=== PATIENT | female | born 1980 | race Caucasian/White ===

== ENCOUNTER 2018-09-24 08:00 | Outpatient (CLI) | payer MEDICAID ==
[2018-09-24 18:26] LABS: BASOPHILS # (AUTO) 0.1 10^3/uL (0.0-0.1); BASOPHILS % (AUTO) 0.8 %; EOSINOPHILS # (AUTO) 0.2 10^3/uL (0.0-0.7); EOSINOPHILS % (AUTO) 2.3 %; HGB - HEMOGLOBIN 14.3 g/dL (12.0-16.0); LYMPHOCYTES # (AUTO) 2.6 10^3/uL (1.5-3.5); LYMPHOCYTES % (AUTO) 35.2 %; MEAN CORPUSCULAR HEMOGLOBIN 28.9 pg (27.0-31.0); MEAN CORPUSCULAR HGB CONC 32.7 g/dL (32.0-36.0); MEAN CORPUSCULAR VOLUME 88.3 fL (81.0-99.0); MEAN PLATELET VOLUME 11.4 fL (7.9-10.8); MONOCYTES # (AUTO) 0.4 10^3/uL (0.0-1.0); MONOCYTES % (AUTO) 5.5 %; NEUTROPHILS # (AUTO) 4.1 10^3/uL (1.5-6.6); NEUTROPHILS % (AUTO) 56.1 %; PLT - PLATELET COUNT 251 10^3/uL (130-450); RED BLOOD COUNT 4.95 10^6/uL (4.20-5.40); RED CELL DISTRIBUTION WIDTH 13.7 % (12.0-15.0); WHITE BLOOD COUNT 7.4 x10^3/uL (4.8-10.8)
[2018-09-24 18:42] LABS: ALBUMIN 3.9 g/dL (3.2-5.5); ALBUMIN/GLOBULIN RATIO 1.1 (1.0-2.2); ALKALINE PHOSPHATASE 53 IU/L (42-121); ALT ALANINE AMINOTRANSFERASE 39 IU/L (10-60); AST ASPARTATE AMINOTRANSFERASE 29 IU/L (10-42); BILIRUBIN,TOTAL 0.5 mg/dL (0.2-1.0); BUN - BLOOD UREA NITROGEN 12 mg/dL (6-20); CARBON DIOXIDE - CO2 26 mmol/L (21-32); CHLORIDE 101 mmol/L (101-111); CHOLESTEROL 242 mg/dL; CREATININE 0.6 mg/dL (0.4-1.0); GFR - MDRD 112 (>89); GLUCOSE 101 mg/dL (70-100); HDL CHOLESTEROL 48 mg/dL; LDL CHOLESTEROL,CALCULATED 141 mg/dL; LDL/HDL RATIO 2.9 (<4.4); SODIUM 140 mmol/L (135-145); TOTAL PROTEIN 7.4 g/dL (6.7-8.2); VLDL CHOLESTEROL 53 mg/dL
== END 2018-09-24 23:59 | disposition home or self-care (01) ==
LOC: LAB.N 08:00
PROVIDERS: ATTEND Nurse Practitioner Gerontology
DX: E66.9 Obesity, unspecified (principal); F32.9 Major depressive disorder, single episode, unspecified
CPT/HCPCS: 36415; 80053; 80061; 83721; 84443; 85025

== ENCOUNTER 2019-01-31 07:59 | Emergency (ER) | payer MEDICAID ==
--- NOTE | 2019-01-31 08:12 | ED Physician Documentation ---
PD HPI LOWER EXT INJURY - Stated complaint Stated Complaint: RT FOOT INJURY - History obtained from History obtained from: Patient - History of Present Illness PD HPI LOW EXT INJURY LOCATION: Right, Foot Type of injury: Twist (fell with twist of foot, has pain lateral proximal foot.) Timing - onset: Today Timing - details: Abrupt onset, Still present Worsened by: Moving, Palpating Associated symptoms: Swelling. No: Weakness, Numbness Similar symptoms before: Diagnosis (had foot fracture near great toe in the past) Review of Systems Skin: denies: Abrasion (s), Laceration (s) Musculoskeletal: denies: Back pain Neurologic: denies: Focal weakness, Numbness PD PAST MEDICAL HISTORY - Past Medical History Cardiovascular: None Endocrine/Autoimmune: Type 2 diabetes - Present Medications Home Medications: Ambulatory Orders Medication Instructions Recorded Confirmed Hydrocodone/Acetaminophen 1 each PO Q6H PRN #12 tablet 01/31/19 [Hydrocodon-Acetaminophen 5-325] Ibuprofen [Motrin] 600 mg PO TID PRN #25 tab 01/31/19 - Allergies Allergies/Adverse Reactions: Allergies Allergy/AdvReac Type Severity Reaction Status Date / Time morphine Allergy Unknown Verified 01/31/19 08:13 PD ED PE NORMAL - Vitals Vital signs reviewed: Yes - General General: Alert and oriented X 3, No acute distress, Well developed/nourished - Extremities Extremities: Other (tender proximal 5th MT area with local swelling. The ankle itself is not tender. Pain with ROM. ) - Neuro Neuro: Alert and oriented X 3, No motor deficit, No sensory deficit Results - Vitals Vitals: Oxygen O2 Source Room air - Rads (name of study) right foot Radiology: Prelim report reviewed (nondisplaced proximal 5th MT shaft fx. ), See rad report Departure - Departure Disposition: 01 Home, Self Care Clinical Impression: Fracture of fifth metatarsal bone Qualifiers: Encounter type: initial encounter Fracture type: closed Fracture alignment: nondisplaced Laterality: right Qualified Code(s): S92.354A - Nondisplaced fracture of fifth metatarsal bone, right foot, initial encounter for closed fracture Condition: Stable Record reviewed to determine appropriate education?: Yes Instructions: ED Fx Foot Follow-Up: Jana Saha ARNP [Primary Care Provider] - Jason Maya MD [Provider Admit Priv/Credential] - Prescriptions: Hydrocodone/Acetaminophen [Hydrocodon-Acetaminophen 5-325] 1 each PO Q6H PRN #12 tablet PRN Reason: pain Ibuprofen [Motrin] 600 mg PO TID PRN #25 tab PRN Reason: Pain Comments: It looks like a nondisplaced fracture at the base of the fifth meta tarsal. Use the walking cast boot when up and around for 3 to 4 weeks for time for it to heal. Crutches initially if needed (he said to have those at home). Progressive weightbearing as tolerated and this can heal with weightbearing and provided it supported with the boot or shoe postop shoe. Ibuprofen 3 times a day initially with food and add Tylenol or hydrocodone if needed for worse pain. This should be just the first several days until its feeling better. Follow-up with orthopedics in about 1 to 1-1/2 weeks to ensure its healing well and staying in place. Ice elevate and rest the foot often today. Discharge Date/Time: 01/31/19 09:45
[2019-01-31 08:15] VITALS: BP 140/84
[2019-01-31] MEDS ORDERED: ACETAMINOPHEN 325 MG TABLET PO STA (08:16)
--- NOTE | 2019-01-31 08:51 | XRAY Report ---
Reason: twist/inversion injury; pain proximal/mid foot Procedure Date: 01/31/2019 Accession Number: [id number] / [id number] Procedure: XR - Foot 3 View RT CPT Code: Final Report FULL RESULT: EXAM: RIGHT FOOT RADIOGRAPHY EXAM DATE: 01/31/2019 08:38 AM. CLINICAL HISTORY: Twist/inversion injury; pain proximal/mid foot. COMPARISON: None. TECHNIQUE: 3 views. FINDINGS: Bones: Lateral orientation of the third and fourth metatarsal head suggesting healed previous fractures.. On one view, there is a minimal cortical step-off at the lateral aspect of the fifth metatarsal head, possibly nonacute. Elsewhere, no acute fractures or bone lesions detected. Joints: . No subluxations. Soft Tissues: No radiopaque foreign bodies.. IMPRESSION: Minimal cortical step-off at the fifth metatarsal head on one view, possibly not acute. Elsewhere, no acute fractures detected on current imaging. [facility]
[2019-01-31] MEDS ORDERED: HYDROcod/ACETAM 5/325 MG TABLET PO STA (09:18)
== END 2019-01-31 09:45 | disposition home or self-care (01) ==
LOC: ED 07:59
DX: S92.354A Nondisplaced fracture of fifth metatarsal bone, right foot, initial encounter for closed fracture (principal); W10.9XXA Fall (on) (from) unspecified stairs and steps, initial encounter; E11.9 Type 2 diabetes mellitus without complications
CPT/HCPCS: 73630; 99283; A9270

== ENCOUNTER 2019-02-21 19:03 | Emergency (ER) | payer MEDICAID ==
[2019-02-21 19:14] VITALS: BP 144/80
[2019-02-21 19:28] LABS: BILIRUBIN,URINE NEGATIVE (NEGATIVE); GLUCOSE, URINE (UA) NEGATIVE (NEGATIVE); KETONES,URINE (UA) NEGATIVE (NEGATIVE); LEUKOCYTE ESTERASE, URINE NEGATIVE (NEGATIVE); NITRITE,URINE NEGATIVE (NEGATIVE); OCCULT BLOOD,URINE TRACE-LYSE (NEGATIVE); PROTEIN,URINE NEGATIVE (NEGATIVE); UROBILINOGEN,URINE 0.2 (NORMAL) E.U./dL (NORMAL)
[2019-02-21 19:33] LABS: CLARITY,URINE CLEAR (CLEAR)
[2019-02-21] MEDS ORDERED: SULFAMETH/TRIMETH DS 800/160 MG TABLET PO STA (20:12)
--- NOTE | 2019-02-21 20:15 | ED Physician Documentation ---
PD HPI FEMALE - Stated complaint Stated Complaint: FEMALE /BUMP ON ABD - Chief complaint Chief Complaint: UTI - History obtained from History obtained from: Patient, Family - History of Present Illness Timing - onset: How many days ago (5) Timing - duration: Days (5) Timing - details: Gradual onset, Still present Associated symptoms: Dysuria, Urinary frequency, Other (sore on lower abdomen getting bigger) Contributing factors: No: Similar symptoms before: Diagnosis (UTI) Recently seen: Emergency Dept - Additional information Additional information: 38-year-old female previously well has developed urinary urgency and frequency with dysuria over the past 5 days. She has not had any fever nausea or flank pain. She has had urinary tract infection previously she feels like this is the same. She denies any history of diabetes. Prior to the onset of the symptoms she has been getting up in the night maybe once to go to the bathroom. She has a sore to the lower abdomen with a small area of redness that is increasing in size and tenderness. She has not had this previously. Review of Systems Constitutional: denies: Fever, Chills, Myalgias Eyes: denies: Decreased vision Ears: denies: Ear pain Nose: denies: Congestion Throat: denies: Sore throat Cardiac: denies: Chest pain / pressure Respiratory: denies: Dyspnea, Cough GI: denies: Abdominal Pain, Nausea, Vomiting : reports: Dysuria, Frequency Skin: reports: Lesions Musculoskeletal: denies: Neck pain, Back pain, Extremity pain Neurologic: denies: Generalized weakness, Focal weakness, Numbness PD PAST MEDICAL HISTORY - Past Medical History Cardiovascular: None - Present Medications Home Medications: Ambulatory Orders Medication Instructions Recorded Confirmed Hydrocodone/Acetaminophen 1 each PO Q6H PRN #12 tablet 01/31/19 [Hydrocodon-Acetaminophen 5-325] Ibuprofen [Motrin] 600 mg PO TID PRN #25 tab 01/31/19 Sulfamethoxazole/Trimethoprim 1 each PO BID #14 tablet 02/21/19 [Sulfamethoxazole-Tmp Ds Tablet] - Allergies Allergies/Adverse Reactions: Allergies Allergy/AdvReac Type Severity Reaction Status Date / Time morphine Allergy Edema Verified 02/21/19 19:09 PD ED PE NORMAL - Vitals Vital signs reviewed: Yes (Hypertensive mild) - General General: Alert and oriented X 3, No acute distress, Well developed/nourished - HEENT HEENT: Atraumatic, PERRL, EOMI - Respiratory Respiratory: No respiratory distress - Abdomen Abdomen: Other (On the lower abdominal wall there is a 1 cm round area of erythema that is raised without fluctuance and there is surrounding erythema extending approximately 5 cm in diameter. The area is mildly tender there is no drainage.) - Derm Derm: Normal color, Warm and dry, No rash Results - Vitals Vitals: Vital Signs - 24 hr 02/21/19 19:10 Temperature 36.6 C Heart Rate 74 Respiratory 18 Rate Blood Pressure 144/80 H O2 Saturation 99 Oxygen O2 Source Room air - Labs Labs: Laboratory Tests 02/21/19 19:20 Urine Color YELLOW Urine Clarity CLEAR Urine pH 6.0 Ur Specific [place] 1.020 Urine Protein NEGATIVE Urine Glucose (UA) NEGATIVE Urine Ketones NEGATIVE Urine Occult Blood TRACE-LYSE Urine Nitrite NEGATIVE Urine Bilirubin NEGATIVE Urine Urobilinogen 0.2 (NORMAL) Ur Leukocyte Esterase NEGATIVE Ur Microscopic Review NOT INDICATED Urine Culture Comments NOT INDICATED PD MEDICAL DECISION MAKING - ED course Complexity details: reviewed old records, considered differential, d/w patient, d/w family ED course: 38-year-old female with urinary tract symptoms has a clear urine without evidence of infection. She does have developing abscess on the lower abdominal wall with some surrounding cellulitis. She is administered a dose of sulfamethoxazole trimethoprim and instructed to use a warm compress. Departure - Departure Disposition: 01 Home, Self Care Clinical Impression: Dysuria, Abscess Condition: Stable Instructions: ED Staph Infec Abx Tx Only, ED Dysuria Uncertain Cause Follow-Up: Jana Saha ARNP [Primary Care Provider] - Prescriptions: Sulfamethoxazole/Trimethoprim [Sulfamethoxazole-Tmp Ds Tablet] 1 each PO BID #14 tablet
[2019-02-21 20:26] LABS: HCG UR QUAL NEGATIVE
== END 2019-02-21 20:35 | disposition home or self-care (01) ==
LOC: ED 19:03
DX: L02.211 Cutaneous abscess of abdominal wall (principal); L03.311 Cellulitis of abdominal wall; R30.0 Dysuria
CPT/HCPCS: 81003; 81025; 99283; 99284; A9270; 81001; 87086

== ENCOUNTER 2020-01-01 17:03 | Emergency (ER) | payer MEDICAID ==
[2020-01-01 17:11] VITALS: BP 157/106
[2020-01-01] MEDS ORDERED: HYDROcod/ACETAM 5/325 MG TABLET PO STA (17:22)
--- NOTE | 2020-01-01 17:25 | ED Physician Documentation ---
History of Present Illness - Stated complaint Stated Complaint: LT LEG PX - Chief complaint Chief Complaint: Trauma Ext - History obtained from History obtained from: Patient - History of Present Illness Timing: Yesterday Pain level max: 8 Pain level now: 6 - Additonal information Additional information: 39-year-old female presents to the emergency department complaining of left calf pain. She states that she was moving hay yesterday when she felt a tearing pain in the left calf. Feels similar to a calf strain/tear that she had in the past. Worse with walking, better with rest. Taking Tylenol and Motrin without relief. Review of Systems Constitutional: denies: Fever, Chills Ears: denies: Ear pain Nose: denies: Rhinorrhea / runny nose, Congestion Throat: denies: Sore throat Cardiac: denies: Chest pain / pressure GI: denies: Vomiting, Diarrhea Skin: denies: Rash Musculoskeletal: denies: Neck pain, Back pain Neurologic: denies: Headache PD PAST MEDICAL HISTORY - Past Medical History Past Medical History: Yes Cardiovascular: None Endocrine/Autoimmune: Type 2 diabetes - Present Medications Home Medications: Ambulatory Orders Medication Instructions Recorded Confirmed HYDROcod/ACETAM 5/325 [[place] 5/325] 1 - 2 ea PO Q6H PRN #14 tablet 01/01/20 Ibuprofen [Motrin] 800 mg PO Q8H PRN #30 tablet 01/01/20 Sertraline [Zoloft] 150 mg PO DAILY 01/01/20 01/01/20 - Allergies Allergies/Adverse Reactions: Allergies Allergy/AdvReac Type Severity Reaction Status Date / Time morphine Allergy Edema Verified 01/01/20 17:06 - Social History Does the pt smoke?: No Smoking Status: Never smoker Does the pt drink ETOH?: No Does the pt have substance abuse?: No - Immunizations Immunizations are current?: Yes - POLST Patient has POLST: No PD ED PE NORMAL - Vitals Vital signs reviewed: Yes - General General: Alert and oriented X 3, No acute distress - HEENT HEENT: Moist mucous membranes - Neck Neck: Supple, no meningeal sign - Derm Derm: Warm and dry - Extremities Extremities: Other (Tenderness palpation of the posterior aspect of the left calf. No swelling. No bruising. Achilles is intact. Neurovascular intact.) - Neuro Neuro: Alert and oriented X 3 Results - Vitals Vitals: Vital Signs - 24 hr 01/01/20 01/01/20 17:06 17:11 Temperature 36.3 C L 36.5 C Heart Rate 83 83 Respiratory 18 18 Rate Blood Pressure 157/106 H 157/106 H O2 Saturation 98 98 Oxygen O2 Source Room air PD MEDICAL DECISION MAKING - ED course Complexity details: considered differential, d/w patient ED course: 39-year-old female with what appears to be a left calf strain. No evidence of Achilles tendon rupture. Plantar flexion of the foot occurs with squeezing the calf. No evidence of DVT. No evidence of cellulitis or infection. We will provide crutches, pain medication and an Quinn wrap for compression. Patient counseled regarding signs and symptoms for which I believe and urgent re- evaluation would be necessary. Patient with good understanding of and agreement to plan and is comfortable going home at this time This document was made in part using voice recognition software. While efforts are made to proofread this document, sound alike and grammatical errors may occur. Departure - Departure Disposition: 01 Home, Self Care Clinical Impression: Strain of left calf muscle Condition: Good Instructions: ED Strain Muscle Ext Follow-Up: KENNETH GONZALES, MSN, GRAIN MANAGER [Primary Care Provider] - Within 1 week Prescriptions: Ibuprofen [Motrin] 800 mg PO Q8H PRN #30 tablet PRN Reason: PAIN &/OR FEVER HYDROcod/ACETAM 5/325 [[place] 5/325] 1 - 2 ea PO Q6H PRN #14 tablet PRN Reason: Pain Comments: Return if you worsen. Follow up with your doctor in 1 week for further care. You may bear weight as tolerated. Do not drink alcohol or drive while on narcotic pain medicine. Note that many narcotic pain relievers also contain tylenol/acetaminophen. Please ensure that your total dose of acetaminophen from all sources does not exceed 3 grams (3000mg) per day. You may constipated on this medication, take a stool softener such as "Colace" twice a day while you are on it. Also recommend a [id number] laxative such as senna or MiraLAX any day that you do not have a bowel movement. If you received narcotic pain medication in the emergency department, do not drive or operate machinery for the next 24 hours.
== END 2020-01-01 17:41 | disposition home or self-care (01) ==
LOC: ED 17:03
DX: S86.912A Strain of unspecified muscle(s) and tendon(s) at lower leg level, left leg, initial encounter (principal); X50.9XXA Other and unspecified overexertion or strenuous movements or postures, initial encounter; Y93.89 Activity, other specified; Y92.007 Garden or yard of unspecified non-institutional (private) residence as the place of occurrence of the external cause; E11.9 Type 2 diabetes mellitus without complications
CPT/HCPCS: 99282; 99284; A9270

== ENCOUNTER 2020-03-16 08:48 | Outpatient (CLI) | payer MEDICAID ==
[2020-03-16 11:56] LABS: BASOPHILS # (AUTO) 0.1 10^3/uL (0.0-0.1); BASOPHILS % (AUTO) 0.7 %; EOSINOPHILS # (AUTO) 0.2 10^3/uL (0.0-0.7); EOSINOPHILS % (AUTO) 2.5 %; HGB - HEMOGLOBIN 14.3 g/dL (12.0-16.0); LYMPHOCYTES # (AUTO) 2.5 10^3/uL (1.5-3.5); LYMPHOCYTES % (AUTO) 33.3 %; MEAN CORPUSCULAR HEMOGLOBIN 28.7 pg (27.0-31.0); MEAN CORPUSCULAR HGB CONC 32.4 g/dL (32.0-36.0); MEAN CORPUSCULAR VOLUME 88.4 fL (81.0-99.0); MEAN PLATELET VOLUME 10.6 fL (7.9-10.8); MONOCYTES # (AUTO) 0.6 10^3/uL (0.0-1.0); MONOCYTES % (AUTO) 7.2 %; NEUTROPHILS # (AUTO) 4.3 10^3/uL (1.5-6.6); NEUTROPHILS % (AUTO) 55.9 %; PLT - PLATELET COUNT 269 10^3/uL (130-450); RED BLOOD COUNT 4.99 10^6/uL (4.20-5.40); RED CELL DISTRIBUTION WIDTH 13.7 % (12.0-15.0); WHITE BLOOD COUNT 7.6 x10^3/uL (4.8-10.8)
[2020-03-16 12:33] LABS: ALBUMIN/GLOBULIN RATIO 1.1 (1.0-2.2); ALKALINE PHOSPHATASE 55 IU/L (42-121); ALT ALANINE AMINOTRANSFERASE 24 IU/L (10-60); AST ASPARTATE AMINOTRANSFERASE 20 IU/L (10-42); BILIRUBIN,TOTAL 0.3 mg/dL (0.2-1.0); BUN - BLOOD UREA NITROGEN 14 mg/dL (6-20); CALCIUM 9.2 mg/dL (8.5-10.3); CARBON DIOXIDE - CO2 26 mmol/L (21-32); CHLORIDE 104 mmol/L (101-111); CHOL/HDL RATIO 4.7 (<4.4); CHOLESTEROL 243 mg/dL; CREATININE 0.7 mg/dL (0.4-1.0); GLUCOSE 114 mg/dL (70-100); HDL CHOLESTEROL 52 mg/dL; LDL CHOLESTEROL,CALCULATED 151 mg/dL; LDL/HDL RATIO 2.9 (<4.4); TOTAL PROTEIN 7.6 g/dL (6.7-8.2); VLDL CHOLESTEROL 40 mg/dL
[2020-03-16 13:49] LABS: HEMOGLOBIN A1c% 5.7 % (4.27-6.07)
== END 2020-03-16 08:49 | disposition home or self-care (01) ==
LOC: LAB.N 08:48
PROVIDERS: ATTEND Nurse Practitioner Family
DX: E78.5 Hyperlipidemia, unspecified (principal); E66.9 Obesity, unspecified
CPT/HCPCS: 36415; 80050; 80061; 83036; 83721

== ENCOUNTER 2020-12-18 09:20 | Outpatient (CLI) | payer MEDICAID ==
[2020-12-18 12:42] LABS: ALBUMIN 4.7 g/dL (3.2-5.5); ALBUMIN/GLOBULIN RATIO 1.5 (1.0-2.2); ALKALINE PHOSPHATASE 55 IU/L (42-121); ALT ALANINE AMINOTRANSFERASE 29 IU/L (10-60); AST ASPARTATE AMINOTRANSFERASE 24 IU/L (10-42); BILIRUBIN,TOTAL 0.7 mg/dL (0.2-1.0); BUN - BLOOD UREA NITROGEN 13 mg/dL (6-20); CALCIUM 9.4 mg/dL (8.5-10.3); CARBON DIOXIDE - CO2 23 mmol/L (21-32); CHLORIDE 101 mmol/L (101-111); CREATININE 0.7 mg/dL (0.4-1.0); CRP - C-REACTIVE PROTEIN < 1.0 mg/dL (0-1.0); GFR - MDRD 93 (>89); GLUCOSE 101 mg/dL (70-100); POTASSIUM 3.8 mmol/L (3.5-5.0); SODIUM 138 mmol/L (135-145); TOTAL PROTEIN 7.9 g/dL (6.7-8.2); URIC ACID 6.9 mg/dL (2.6-7.2)
[2020-12-18 13:39] LABS: RHEUMATOID FACTOR NEGATIVE (Negative)
[2020-12-21 18:21] LABS: ANA SCREEN NEGATIVE (NEGATIVE)
== END 2020-12-18 09:21 | disposition home or self-care (01) ==
LOC: LAB.N 09:20
PROVIDERS: ATTEND Nurse Practitioner
DX: M77.11 Lateral epicondylitis, right elbow (principal)
CPT/HCPCS: 36415; 80053; 81599; 84550; 85651; 86038; 86140; 86200; 86225; 86430; 87040

== ENCOUNTER 2020-12-25 09:15 | Outpatient (CLI) | payer MEDICAID ==
--- NOTE | 2020-12-25 16:42 | XRAY Report ---
PROCEDURE: Elbow 3 View RT INDICATIONS: LATERAL EPICONDYLITIS TECHNIQUE: 3 views of the elbow were acquired. COMPARISON: None FINDINGS: Bones: No fractures or dislocations. No suspicious bony lesions. Soft tissues: No elbow joint effusion. No suspicious soft tissue calcifications. IMPRESSION: No fracture. No osseous lesion. If there are persistent symptoms or continued clinical concern for pa thology, then repeat plain film radiographs (7-10 days) or advanced imaging (CT, MR, bone scan) shoul d be considered for further evaluation. Reviewed by: Radha Rivera MD, PhD on 12/25/2020 4:41 PM PST Approved by: Radha Rivera MD, PhD on 12/25/2020 4:41 PM PST Station ID: [id number]
== END 2020-12-25 23:59 | disposition home or self-care (01) ==
LOC: DI.N 09:15
PROVIDERS: ATTEND Physician Assistant
DX: M77.11 Lateral epicondylitis, right elbow (principal)

== ENCOUNTER 2022-03-20 16:00 | Outpatient (CLI) | payer MEDICAID | END 2022-03-20 16:45 | disposition home or self-care (01) | LOC: LAB.N 16:00 | PROVIDERS: ATTEND Physician Assistant Medical | DX: L72.9 Follicular cyst of the skin and subcutaneous tissue, unspecified (principal) | CPT/HCPCS: 87070; 87205 ==